=== PATIENT | male | born 1955 | race African-American/Black ===

== ENCOUNTER 2018-06-18 21:27 | Emergency (ER) | payer MEDICAID ==
[~2018-06-18] VITALS: Ht 170.2 cm; Wt 79.1 kg
[~2018-06-18 21:27] MED LIST: BENADRYL; OMEPRAZOLE; PERMETHRIN
[2018-06-19] MEDS ORDERED: KETOROLAC 30MG/ML VIAL IM ONE (00:45)
[2018-06-19 00:50] VITALS: BP 133/84
== END 2018-06-19 02:25 | disposition home or self-care (01) ==
LOC: ER 21:27
DX: M54.5 Low back pain (principal); F17.200 Nicotine dependence, unspecified, uncomplicated; F43.10 Post-traumatic stress disorder, unspecified
CPT/HCPCS: 96372; 99283; J1885

== ENCOUNTER 2025-03-02 21:42 | Emergency (ER) | payer MEDICARE, MEDICAID ==
[~2025-03-02] VITALS: Ht 172.7 cm; Wt 79.0 kg
[2025-03-02 22:07] VITALS: O2SAT 99
[2025-03-03] MEDS: CYCLOBENZAPRINE 10MG TABLET PO ONE (02:45)
[2025-03-03] MEDS: LIDOCAINE 5% PATCH TOP SCH (02:48)
[2025-03-03] MEDS: KETOROLAC 15MG/ML VIAL IM ONE (02:48)
[2025-03-03] MEDS ORDERED: LIDO-53 TP (03:04)
[2025-03-03] MEDS ORDERED: NAPR-1176 MT (03:04)
[2025-03-03] MEDS ORDERED: CYCL5TAB3 MT (03:04)
[2025-03-03 03:25] VITALS: BP 144/92; PULSE 97; RESP 17; TEMP 36.9; O2SAT 99
== END 2025-03-03 03:30 | disposition home or self-care (01) ==
LOC: ER 21:42
DX: M54.50 Low back pain, unspecified (principal); Z79.899 Other long term (current) drug therapy
CPT/HCPCS: 99283; 96372; J1885